=== PATIENT | female | born 1985 | race Caucasian/White ===

== ENCOUNTER 2016-05-08 06:17 | Emergency (ER) | payer OTHER ==
[2016-05-08 07:41] LABS: RED BLOOD COUNT 4.29 M/UL (4.00-5.10); WHITE BLOOD COUNT 17.7 K/UL (4.5-11.0)
[2016-05-08 08:08] LABS: BUN/CREATININE RATIO 20 (0-10)
== END 2016-05-08 11:35 | disposition home or self-care (01) ==
LOC: ER1 06:17
PROVIDERS: Physician Assistant
DX: I95.1 Orthostatic hypotension (principal); N61.0 Mastitis without abscess; E86.0 Dehydration
CPT/HCPCS: 36415; 71010; 80053; 81001; 83605; 84703; 85025; 87040; 93005; 96361; 96374; 99284; J0696; J7050